=== PATIENT | female | born 1990 | race African-American/Black ===

== ENCOUNTER 2016-03-21 15:21 | Emergency (ER) | payer SELFPAY ==
[~2016-03-21] VITALS: Ht 162.6 cm; Wt 72.1 kg
[~2016-03-21 15:21] MED LIST: BACTRIM-DS1 EA ORAL; CLARITIN-D 241 EACH PO; DOXYCYCLINE MO100 MG ORAL; IBUPROFEN600 M1 PO; IBUPROFEN600 MG ORAL; KEFLEX500 MG ORAL; MUCINEX DM ER1 EACH PO; NEXAFED30 MG ORAL; NITROFURANTOIN100 M2 ORAL; PRENATAL FORMU1 EAC2 ORAL; SYNTHROID75 MCG ORAL; VICODIN 5-5001 EACH ORAL; ZITHROMAX250 MG ORAL
[2016-03-21 15:57] VITALS: BP 123/81
[2016-03-21] MEDS ORDERED: METROGEL-VAGINA70 G1 VAGIN (16:17)
[2016-03-21 16:40] VITALS: BP 123/81
--- NOTE | 2016-03-22 15:08 | Emergency Room Report ---
History of Present Illness General Chief Complaint: General Complaint Source: Patient Present Illness HPI 25-year-old female presents ED for evaluation. Patient states that she was prescribed metronidazole for BV A few days ago. States that when she takes the medication she feels something stuck in her chest and she cannot breathe. Patient went back to the same emergency room and was told that there is no alternative medication. Patient did not take the medication today. Denies any chest pain or chest tightness. Denies any shortness of breath. Denies any known food or drug allergies. No other aggravating or relieving factors. Denies any other associated symptoms Allergies: Coded Allergies: AMOXICILLIN (Verified Allergy, 10/23/12) Patient History Past Medical History: DM, HTN Past Surgical History: none Pertinent Family History: none Social History: Denies: alcohol use, drug use, smoking Last Menstrual Period: 03/16/16 Now: No Immunizations: UTD Reviewed Nursing Documentation: PMH: Agreed, PSxH: Agreed Nursing Documentation-PMH Past Medical History: No History, Except For Hx Hypertension: Yes Hx Diabetes: Yes - pre-diabetic Review of Systems All Other Systems: negative except mentioned in HPI Physical Exam Vital Signs Date Time Temp Pulse Resp B/P Pulse Ox O2 Delivery O2 Flow Rate FiO2 03/21/16 15:38 98.2 75 14 123/81 99 Room Air Sp02 EP Interpretation: reviewed, normal General Appearance: no apparent distress, alert, GCS 15, non-toxic Head: normocephalic, atraumatic Eyes: bilateral eye PERRL, bilateral eye normal inspection ENT: hearing grossly normal, normal pharynx, no angioedema, normal voice Neck: full range of motion, supple/symm/no masses Respiratory: chest non-tender, lungs clear, normal breath sounds, speaking full sentences Cardiovascular #1: regular rate, rhythm, no edema Cardiovascular #2: 2+ carotid (R), 2+ carotid (L), 2+ radial (R), 2+ radial (L) , 2+ dorsalis pedis (R), 2+ dorsalis pedis (L) Gastrointestinal: normal bowel sounds, non tender, soft, non-distended, no guarding, no rebound Rectal: deferred Genitourinary: normal inspection, no CVA tenderness Musculoskeletal: back normal, gait/station normal, normal range of motion, non- tender Neurologic: alert, oriented x3, responsive, motor strength/tone normal, sensory intact, speech normal Psychiatric: judgement/insight normal, memory normal, mood/affect normal, no suicidal/homicidal ideation Reflexes: 3+ bicep (R), 3+ bicep (L), 3+ tricep (R), 3+ tricep (L), 3+ knee (R) , 3+ knee (L) Skin: normal color, no rash, warm/dry, well hydrated Lymphatic: no adenopathy Medical Decision Making Diagnostic Impression: Primary Impression: Adverse reaction to drug Qualified Codes: T88.7XXA - Unspecified adverse effect of drug or medicament, initial encounter Additional Impression: BV (bacterial vaginosis) ER Course 25-year-old female presents ED with complaints of shortness of breath and chest tightness after taking metronidazole Differential-reactive airway disease, allergic reaction, adverse reaction to medication She placed on stretcher. After initial history physical exam reveals a young female in no acute distress. Lungs are clear. Heart exam unremarkable. No stridor and neck exam. Patient appears well. Stable vitals. Afebrile We will switch patient from metronidazole to MetroGel Diagnosis- adverse reaction to drug, BV Stable and discharged to home with prescription for MetroGel. Discontinue metronidazole. Followup with PMD. Return to ED if symptoms recur or worsen Last Vital Signs Date Time Temp Pulse Resp B/P Pulse Ox O2 Delivery O2 Flow Rate FiO2 03/21/16 16:40 98.2 75 14 123/81 99 Room Air Status: improved Disposition: HOME, SELF-CARE Condition: Stable Scripts Metronidazole* (METROGEL-VAGINAL*) 70 Gm Gel.w.appl 1 APPL VAGIN EVERY 12 HOURS for 7 Days, #70 GM Prov: DEONNA OVALLE M.D. 03/21/16 Referrals: NOT CHOSEN MICHAEL/,REFERRING (PCP) Patient Instructions: Bacterial Vaginosis, [id number] DEONNA OVALLE M.D. Mar 22, 2016 15:08
== END 2016-03-21 16:40 | disposition home or self-care (01) ==
LOC: EMR 16:09
DX: T37.8X5A Adverse effect of other specified systemic anti-infectives and antiparasitics, initial encounter (principal); Y92.009 Unspecified place in unspecified non-institutional (private) residence as the place of occurrence of the external cause; R06.02 Shortness of breath; N76.0 Acute vaginitis; B96.89 Other specified bacterial agents as the cause of diseases classified elsewhere; I10 Essential (primary) hypertension; E11.9 Type 2 diabetes mellitus without complications; Z88.0 Allergy status to penicillin
CPT/HCPCS: 99283

== ENCOUNTER 2016-07-19 16:31 | Emergency (ER) | payer SELFPAY ==
[~2016-07-19] VITALS: Ht 162.6 cm; Wt 71.2 kg
[~2016-07-19 16:31] MED LIST changes: +METROGEL-VAGINA70 G1 VAGIN
[2016-07-19 17:02] VITALS: BP 128/87
[2016-07-19 17:41] LABS: APPEARANCE,URINE CLEAR; KETONES,URINE NEGATIVE (NEGATIVE); LEUKOCYTE ESTERASE ,URINE 1+ (NEGATIVE); NITRITE,URINE NEGATIVE (NEGATIVE); PH,URINE 7 (4.5-8.0); PROTEIN,URINE NEGATIVE (NEGATIVE); UROBILINOGEN,URINE NORMAL MG/DL (0.0-1.0)
[2016-07-19 17:45] LABS: BASOPHILS % (AUTO) 1.1 % (0.0-2.0); EOSINOPHILS % (AUTO) 1.5 % (0.0-3.0); LYMPHOCYTES % (AUTO) 49.6 % (20.0-45.0); MEAN CORPUSCULAR HEMOGLOBIN 30.6 PG (27.0-31.0); MEAN CORPUSCULAR HGB CONC 35.1 G/DL (32.0-36.0); MEAN CORPUSCULAR VOLUME 87 FL (80-99); MEAN PLATELET VOLUME 7.2 FL (6.5-10.1); MONOCYTES % (AUTO) 7.1 % (1.0-10.0); NEUTROPHILS % (AUTO) 40.7 % (45.0-75.0); PLATELET COUNT 231 K/UL (150-450); RED BLOOD COUNT 4.09 M/UL (4.20-5.40); RED CELL DISTRIBUTION WIDTH 11.7 % (11.6-14.8); WHITE BLOOD COUNT 6.3 K/UL (4.8-10.8)
[2016-07-19 17:55] LABS: TROPONIN I < 0.30 ng/mL (<=0.30)
[2016-07-19 17:57] LABS: ALANINE AMINOTRANSFERASE 16 U/L (3-33); ALBUMIN/GLOBULIN RATIO 1.5 (1.0-2.7); ANION GAP 14 (5-15); ASPARTATE AMINO TRANSFERASE 19 U/L (5-40); CALCIUM 9.1 mg/dL (8.6-10.2); CARBON DIOXIDE 26 mEQ/L (20-30); CHLORIDE 98 mEQ/L (98-107); CREATININE 0.8 mg/dL (0.5-0.9); GLOMERULAR FILTRATION RATE > 60 mL/min (>60); HEMOLYSIS 6; POTASSIUM 4.3 mEQ/L (3.4-4.9); SODIUM 138 mEQ/L (135-145); TOTAL PROTEIN 7.3 g/dL (6.6-8.7)
[2016-07-19 18:02] LABS: RBC,URINE 0-2 /HPF (0 - 2); WBC,URINE 0-2 /HPF (0 - 2)
[2016-07-19 18:03] LABS: BACTERIA,URINE FEW /HPF; SQUAMOUS EPITHELIAL CELL,UR FEW /LPF (NONE/OCC)
[2016-07-19 18:07] LABS: CKMB 1.6 ng/mL (< 3.8)
[2016-07-19 18:30] VITALS: BP 121/78
[2016-07-19] MEDS ORDERED: IBUPROFEN600 MG ORAL (18:51)
[2016-07-19 19:02] VITALS: BP 124/76
--- NOTE | 2016-07-19 20:32 | Emergency Room Report ---
History of Present Illness General Chief Complaint: General Complaint Source: Patient, Medical Record Present Illness HPI 26-year-old female presents to ED complaining of chest pain for 3 days. Pain is midsternal, 8/10, sharp, radiating to the right shoulder. Denies shortness of breath. Denies trauma. Denies smoking or drug use. No other aggravating or relieving factors. Denies any other associated symptoms Allergies: Coded Allergies: AMOXICILLIN (Verified Allergy, 10/23/12) Patient History Past Medical History: DM, HTN Past Surgical History: none Pertinent Family History: none Social History: Denies: alcohol use, drug use, smoking Last Menstrual Period: 07/14/16 Now: No : 6 Para: 1 Immunizations: UTD Reviewed Nursing Documentation: PMH: Agreed, PSxH: Agreed Nursing Documentation-PMH Past Medical History: No History, Except For Hx Hypertension: Yes Hx Diabetes: Yes - pre-diabetic Review of Systems All Other Systems: negative except mentioned in HPI Physical Exam Vital Signs Date Time Temp Pulse Resp B/P Pulse Ox O2 Delivery O2 Flow Rate FiO2 07/19/16 16:36 98.2 69 16 131/88 99 Room Air Sp02 EP Interpretation: reviewed, normal General Appearance: no apparent distress, alert, GCS 15, non-toxic Head: normocephalic, atraumatic Eyes: bilateral eye PERRL, bilateral eye normal inspection ENT: hearing grossly normal, normal pharynx, no angioedema, normal voice Neck: full range of motion, supple/symm/no masses Respiratory: lungs clear, normal breath sounds, speaking full sentences, other - reproducible midsternal chest wall pain Cardiovascular #1: regular rate, rhythm, no edema Cardiovascular #2: 2+ carotid (R), 2+ carotid (L), 2+ radial (R), 2+ radial (L) , 2+ dorsalis pedis (R), 2+ dorsalis pedis (L) Gastrointestinal: normal bowel sounds, non tender, soft, non-distended, no guarding, no rebound Rectal: deferred Genitourinary: normal inspection, no CVA tenderness Musculoskeletal: back normal, gait/station normal, normal range of motion, non- tender, calf tenderness Neurologic: alert, oriented x3, responsive, motor strength/tone normal, sensory intact, speech normal Psychiatric: judgement/insight normal, memory normal, mood/affect normal, no suicidal/homicidal ideation Reflexes: 3+ bicep (R), 3+ bicep (L), 3+ tricep (R), 3+ tricep (L), 3+ knee (R) , 3+ knee (L) Skin: normal color, no rash, warm/dry, well hydrated Lymphatic: no adenopathy Medical Decision Making Diagnostic Impression: Primary Impression: Chest wall pain ER Course Hospital Course 26-year-old female presents ED complaining of reproducible chest wall pain Differential diagnoses include: Rib fracture, KS/unstable angina, contusion, muscle strain Clinical course Patient placed on stretcher. After initial history and physical I ordered labs , EKG, chest x-ray. labs reviewed- all electrolytes normal, troponins negative, no leukocytosis, hemoglobin/hematocrit stable EKG - NSR, no acute changes Chest x-ray-no cardiomegaly, no rib fracture, no pneumothorax, no acute process clinical findings consistent with muscle strain/costochondritis. Reassurance given. I. I feel this is a highly complex case requiring extensive working including EKG/Rhythm strip, Xray/CT/US, Blood/urine lab work, repeat exams while in ED, and administration of strong opiates/narcotics for pain control, admission to hospital or close patient follow up. Diagnosis - chest wall pain Stable and discharged to home with prescription for Motrin. Instructed to followup with PMD. Return to ED if symptoms recur or worsen Labs Test 07/19/16 17:12 White Blood Count 6.3 K/UL (4.8-10.8) Red Blood Count 4.09 M/UL (4.20-5.40) Hemoglobin 12.5 G/DL (12.0-16.0) Hematocrit 35.7 % (37.0-47.0) Mean Corpuscular Volume 87 FL (80-99) Mean Corpuscular Hemoglobin 30.6 PG (27.0-31.0) Mean Corpuscular Hemoglobin Concent 35.1 G/DL (32.0-36.0) Red Cell Distribution Width 11.7 % (11.6-14.8) Platelet Count 231 K/UL (150-450) Mean Platelet Volume 7.2 FL (6.5-10.1) Neutrophils (%) (Auto) 40.7 % (45.0-75.0) Lymphocytes (%) (Auto) 49.6 % (20.0-45.0) Monocytes (%) (Auto) 7.1 % (1.0-10.0) Eosinophils (%) (Auto) 1.5 % (0.0-3.0) Basophils (%) (Auto) 1.1 % (0.0-2.0) Urine Color Pale yellow Urine Appearance Clear Urine pH 7 (4.5-8.0) Urine Specific [place] 1.010 (1.005-1.035) Urine Protein Negative (NEGATIVE) Urine Glucose (UA) Negative (NEGATIVE) Urine Ketones Negative (NEGATIVE) Urine Occult Blood Negative (NEGATIVE) Urine Nitrite Negative (NEGATIVE) Urine Bilirubin Negative (NEGATIVE) Urine Urobilinogen Normal MG/DL (0.0-1.0) Urine Leukocyte Esterase 1+ (NEGATIVE) Urine RBC 0-2 /HPF (0 - 2) Urine WBC 0-2 /HPF (0 - 2) Urine Squamous Epithelial Cells Few /LPF (NONE/OCC) Urine Bacteria Few /HPF (NONE) Urine HCG, Qualitative Negative Sodium Level 138 mEQ/L (135-145) Potassium Level 4.3 mEQ/L (3.4-4.9) Chloride Level 98 mEQ/L (98-107) Carbon Dioxide Level 26 mEQ/L (20-30) Anion Gap 14 (5-15) Blood Urea Nitrogen 9 mg/dL (7-23) Creatinine 0.8 mg/dL (0.5-0.9) Estimat Glomerular Filtration Rate > 60 mL/min (>60) Glucose Level 82 mg/dL (74-106) Calcium Level 9.1 mg/dL (8.6-10.2) Total Bilirubin 0.5 mg/dL (0.0-1.2) Aspartate Amino Transf (AST/SGOT) 19 U/L (5-40) Alanine Aminotransferase (ALT/SGPT) 16 U/L (3-33) Alkaline Phosphatase 56 U/L (35-104) Total Creatine Kinase 164 U/L (26-140) Creatine Kinase MB 1.6 ng/mL (< 3.8) Creatine Kinase MB Relative Index 0.9 Troponin I < 0.30 ng/mL (<=0.30) Total Protein 7.3 g/dL (6.6-8.7) Albumin 4.4 g/dL (3.5-5.2) Globulin 2.9 g/dL Albumin/Globulin Ratio 1.5 (1.0-2.7) Urine Opiates Screen Negative (NEGATIVE) Urine Barbiturates Screen Negative (NEGATIVE) Phencyclidine (PCP) Screen Negative (NEGATIVE) Urine Amphetamines Screen Negative (NEGATIVE) Urine Benzodiazepines Screen Negative (NEGATIVE) Urine Cocaine Screen Negative (NEGATIVE) Urine Marijuana (THC) Screen Negative (NEGATIVE) EKG Diagnostic Results Rate: normal Rhythm: NSR ST Segments: no acute changes ASA given to the pt in ED: No Rhythm Strip Diag. Results EP Interpretation: yes Rhythm: NSR, no PVC's, no ectopy Chest X-Ray Diagnostic Results EP Interpretation: Yes Findings: no consolidation, no effusion, no pneumothorax, no acute cardiopulmonary disease Number of Views: 1 Last Vital Signs Date Time Temp Pulse Resp B/P Pulse Ox O2 Delivery O2 Flow Rate FiO2 07/19/16 19:02 64 13 124/76 97 Room Air 07/19/16 18:30 97.9 Status: improved Disposition: HOME, SELF-CARE Condition: Stable Scripts Ibuprofen* (MOTRIN*) 600 Mg Tablet 600 MG ORAL Q8H Y for For Pain, #30 TAB 0 Refills Prov: DEONNA OVALLE M.D. 07/19/16 Referrals: NON PHYSICIAN (PCP) Patient Instructions: Chest Wall Pain, [id number] DEONNA OVALLE M.D. Jul 19, 2016 20:32
--- NOTE | 2016-07-20 12:04 | Diagnostic Imaging Report ---
Indication: Chest Pain Comparison: 01/20/15 A single view chest radiograph was obtained. Findings: Cardiomediastinal appearance is within normal limits for age. Pulmonary vascularity is appropriate. The diaphragmatic contour is smooth and costophrenic angles are sharp. No pleural effusions are identified. The bones are unremarkable. Impression: No acute findings
--- NOTE | 2016-07-22 01:10 | Cardiology Report ---
APPROVED REPORT EKG Measurement Heart [id number] Normal sinus rhythm Normal ECG
== END 2016-07-19 19:04 | disposition home or self-care (01) ==
LOC: EMR 17:27
DX: R07.89 Other chest pain (principal); I10 Essential (primary) hypertension; Z88.0 Allergy status to penicillin
CPT/HCPCS: 36415; 71010; 80053; 80300; 81003; 81025; 82550; 82553; 82962; 84484; 85025; 93005; 99283

== ENCOUNTER 2017-04-11 14:04 | Emergency (ER) | payer MEDICAID ==
[~2017-04-11] VITALS: Ht 162.6 cm; Wt 68.0 kg
--- NOTE | 2017-04-11 15:24 | Emergency Room Report ---
History of Present Illness General Chief Complaint: General Complaint Source: Patient (Garrick Neal) Present Illness HPI 26yo female patient presents to ER complaining of dysuria, sore throat, and general fatigue x1 month. Patient reports dysuria and frequency during this time, Patient also complains of clear/white vaginal discharge. Patient reports hx of unprotected sex; denies bloody vaginal discharge. Patient reports foul smelling vaginal odor. Patient denies itching. Patient reports LMP one month ago; states was normal for her. Patient also complains of sore throat. Patient denies cough and fever. Patient denies chest pain, SOB, abdominal pain. Patient reports hx of hypothyroidism; states she was previously being treated but was taken off medication 2-3 years ago; states last appointment with physician for thyroid was 2-3 years ago. (Garrick Neal) Allergies: Coded Allergies: AMOXICILLIN (Verified Allergy, 10/23/12) Patient History Past Medical History: see triage record Last Menstrual Period: 3 weeks ago Reviewed Nursing Documentation: PMH: Agreed, PSxH: Agreed (Garrick Neal) Nursing Documentation-PMH Past Medical History: No History, Except For Hx Hypertension: Yes Hx Diabetes: Yes - pre-diabetic (Garrick Neal) Review of Systems All Other Systems: negative except mentioned in HPI (Garrick Neal) Physical Exam Vital Signs Date Time Temp Pulse Resp B/P (MAP) Pulse Ox O2 Delivery O2 Flow Rate FiO2 04/11/17 14:59 98.0 72 16 132/86 97 Room Air 98.1 Sp02 EP Interpretation: reviewed, normal General Appearance: well appearing, no apparent distress, alert, GCS 15, non- toxic Head: normocephalic, atraumatic Eyes: bilateral eye normal inspection, bilateral eye PERRL, bilateral eye EOMI ENT: hearing grossly normal, normal pharynx, normal voice, TMs + canals normal , uvula midline, moist mucus membranes, nasal congestion, pharyngeal erythema, other - no exudates, no open sores, no bleeding, no tonsillar swelling Neck: normal inspection, full range of motion, thyroid normal, no bony tend Respiratory: normal inspection, lungs clear, normal breath sounds, no accessory muscle use, no wheezing, speaking full sentences Cardiovascular #1: regular rate, rhythm, no edema Gastrointestinal: normal bowel sounds, non tender, soft, no mass, non-distended , no guarding, no rebound Genitourinary: no CVA tenderness Musculoskeletal: back normal, digits/nails normal, gait/station normal, normal range of motion, no calf tenderness Neurologic: alert, oriented x3, responsive, or manager III-XII nml as tested, motor strength/tone normal, sensory intact, normal gait Psychiatric: mood/affect normal Skin: no rash Lymphatic: no adenopathy (Garrick Neal) Medical Decision Making PA Attestation Dr. Hernandez is my supervising Physician whom patient management has been discussed with. (Garrick Neal) Diagnostic Impression: Primary Impression: Pain with urination Additional Impressions: Pharyngitis Qualified Codes: J02.9 - Acute pharyngitis, unspecified Sexually transmitted infection ER Course Pt. presents to the ED c/o dysuria and generalized fatigue. Ddx considered but are not limited to gonorrhea, chlamydia, cystitis, pyelonephritis, pharyngitis, hypothyroidism, . Vital signs: are WNL, pt. is afebrile Order labs, UA, and Zofran for nausea. ER COURSE: CBC unremarkable Urine negative TSH within normal range UA negative for nitrites, positive for WBC, bacteria, leukocyte esterase. Results discussed with patient. Informed patient that she must followup with her primary care for further followup labs and monitoring of her thyroid. Discussed findings with patient. Informed patient will provide treatment for possible STI and bacterial vaginosis. Instructed patient to take Tylenol for sore throat. Patient reports understanding and agreement to treatment plan. ED INTERVENTIONS: -Viscous lidocaine -Rocephin DISCHARGE: Rx provided for Tylenol for pain symptoms in throat. Rx provided for Azithromycin Rx provided for metronidazole gel for bacterial vaginosis. Rx provided for Phenazopyridine if urine symptoms do not improve. Advised to use safe sex practices including but not limited to use of condoms. Instructed patient to follow up with STI clinic and/or PCP for future STI treatment and prevention. Instructed patient to inform partner of need for treatment to prevent future infection. Care plan and follow up instructions have been discussed with the patient prior to discharge At this time pt. is stable for d/c to home. Patient is resting comfortably, in no acute distress, nontoxic appearing. Will provide printed patient care instructions, and any necessary prescriptions. Patient instructed to follow with primary care provider for further treatment and referral as needed. Care plan and follow up instructions have been discussed with the patient prior to discharge. Patient reports understanding and agreement to treatment plan. Patient questions asked and answered. ER precautions given, patient instructed to return to ER immediately for any new or worsening of symptoms. Labs Test 04/11/17 15:43 04/11/17 16:00 White Blood Count 6.8 K/UL (4.8-10.8) Red Blood Count 4.66 M/UL (4.20-5.40) Hemoglobin 13.4 G/DL (12.0-16.0) Hematocrit 40.6 % (37.0-47.0) Mean Corpuscular Volume 87 FL (80-99) Mean Corpuscular Hemoglobin 28.8 PG (27.0-31.0) Mean Corpuscular Hemoglobin Concent 33.1 G/DL (32.0-36.0) Red Cell Distribution Width 12.6 % (11.6-14.8) Platelet Count 252 K/UL (150-450) Mean Platelet Volume 8.3 FL (6.5-10.1) Neutrophils (%) (Auto) 49.4 % (45.0-75.0) Lymphocytes (%) (Auto) 40.4 % (20.0-45.0) Monocytes (%) (Auto) 7.5 % (1.0-10.0) Eosinophils (%) (Auto) 1.3 % (0.0-3.0) Basophils (%) (Auto) 1.4 % (0.0-2.0) Sodium Level 138 MMOL/L (136-145) Potassium Level 4.2 MMOL/L (3.5-5.1) Chloride Level 102 MMOL/L (98-107) Carbon Dioxide Level 29 MMOL/L (21-32) Anion Gap 7 mmol/L (5-15) Blood Urea Nitrogen 9 mg/dL (7-18) Creatinine 0.7 MG/DL (0.55-1.30) Estimat Glomerular Filtration Rate > 60 mL/min (>60) Glucose Level 91 MG/DL (74-106) Calcium Level 9.1 MG/DL (8.5-10.1) Total Bilirubin 0.5 MG/DL (0.2-1.0) Aspartate Amino Transf (AST/SGOT) 25 U/L (15-37) Alanine Aminotransferase (ALT/SGPT) 24 U/L (12-78) Alkaline Phosphatase 64 U/L (46-116) Total Protein 8.0 G/DL (6.4-8.2) Albumin 4.0 G/DL (3.4-5.0) Globulin 4.0 g/dL Albumin/Globulin Ratio 1.0 (1.0-2.7) Lipase 123 U/L (73-393) Thyroid Stimulating Hormone (TSH) 2.137 uiU/mL (0.358-3.740) Human Chorionic Gonadotropin, Quant 1 mIU/mL (1-6) Urine Color Pale yellow Urine Appearance Clear Urine pH 6.5 (4.5-8.0) Urine Specific [place] 1.010 (1.005-1.035) Urine Protein Negative (NEGATIVE) Urine Glucose (UA) Negative (NEGATIVE) Urine Ketones Negative (NEGATIVE) Urine Occult Blood Negative (NEGATIVE) Urine Nitrite Negative (NEGATIVE) Urine Bilirubin Negative (NEGATIVE) Urine Urobilinogen Normal MG/DL (0.0-1.0) Urine Leukocyte Esterase 1+ (NEGATIVE) Urine RBC 0-2 /HPF (0 - 2) Urine WBC 2-4 /HPF (0 - 2) Urine Squamous Epithelial Cells Few /LPF (NONE/OCC) Urine Bacteria Occasional /HPF (NONE) Urine HCG, Qualitative Negative (Garrick Neal P.A.) Last Vital Signs Date Time Temp Pulse Resp B/P (MAP) Pulse Ox O2 Delivery O2 Flow Rate FiO2 04/11/17 14:59 98.0 72 16 132/86 97 Room Air 98.1 (Garrick Neal P.A.) Last Vital Signs Date Time Temp Pulse Resp B/P (MAP) Pulse Ox O2 Delivery O2 Flow Rate FiO2 04/11/17 19:48 98.1 76 16 132/86 97 Room Air 98.1 (Shabbir Hernandez M.D.) Disposition: HOME, SELF-CARE Condition: Stable Scripts Metronidazole* (METROGEL-VAGINAL*) 70 Gm Gel.w.appl 1 APPL VAGIN EVERY 12 HOURS, #70 GM Prov: Garrick Neal P.AIsrael 04/11/17 Acetaminophen* (TYLENOL EXTRA STRENGTH*) 500 Mg Tablet 500 MG ORAL Q8H Y for Prn Headache/Temp > 101, #30 TAB 0 Refills Prov: Garrick Neal 04/11/17 Azithromycin* (ZITHROMAX*) 250 Mg Tablet 250 MG ORAL DAILY, #6 TAB 0 Refills Take two tables once daily for 1 day, then one tablet once daily for 4 days. Prov: Garrick Neal 04/11/17 Phenazopyridine Hcl* (PYRIDIUM*) 200 Mg Tablet 200 MG ORAL THREE TIMES A DAY, #14 TAB 0 Refills Prov: Garrick Neal 04/11/17 Additional Instructions: Followup with primary care provider in 3 -5 days. Take medications as directed. Patient questions asked and answered. ER precautions given, patient instructed to return to ER immediately for any new or worsening of symptoms. Garrick Neal Apr 11, 2017 15:24 Shabbir Hernandez M.D. Apr 12, 2017 23:16
[2017-04-11 15:55] LABS: BASOPHILS % (AUTO) 1.4 % (0.0-2.0); EOSINOPHILS % (AUTO) 1.3 % (0.0-3.0); HEMATOCRIT 40.6 % (37.0-47.0); HEMOGLOBIN 13.4 G/DL (12.0-16.0); LYMPHOCYTES % (AUTO) 40.4 % (20.0-45.0); MEAN CORPUSCULAR VOLUME 87 FL (80-99); MONOCYTES % (AUTO) 7.5 % (1.0-10.0); NEUTROPHILS % (AUTO) 49.4 % (45.0-75.0); PLATELET COUNT 252 K/UL (150-450); RED BLOOD COUNT 4.66 M/UL (4.20-5.40); RED CELL DISTRIBUTION WIDTH 12.6 % (11.6-14.8); WHITE BLOOD COUNT 6.8 K/UL (4.8-10.8)
[2017-04-11 16:09] LABS: ANION GAP 7 mmol/L (5-15); BLOOD UREA NITROGEN 9 mg/dL (7-18); CALCIUM 9.1 MG/DL (8.5-10.1); CARBON DIOXIDE 29 MMOL/L (21-32); CHLORIDE 102 MMOL/L (98-107); CREATININE 0.7 MG/DL (0.55-1.30); POTASSIUM 4.2 MMOL/L (3.5-5.1); SODIUM 138 MMOL/L (136-145)
[2017-04-11 16:21] LABS: ALANINE AMINOTRANSFERASE 24 U/L (12-78); ALKALINE PHOSPHATASE 64 U/L (46-116); ASPARTATE AMINO TRANSFERASE 25 U/L (15-37); BILIRUBIN,TOTAL 0.5 MG/DL (0.2-1.0)
[2017-04-11 16:36] LABS: APPEARANCE,URINE CLEAR; BILIRUBIN, URINE NEGATIVE (NEGATIVE); COLOR,URINE PALE YELLOW; GLUCOSE, URINE (UA) NEGATIVE (NEGATIVE); KETONES,URINE NEGATIVE (NEGATIVE); LEUKOCYTE ESTERASE ,URINE 1+ (NEGATIVE); NITRITE,URINE NEGATIVE (NEGATIVE); PH,URINE 6.5 (4.5-8.0); PROTEIN,URINE NEGATIVE (NEGATIVE); UROBILINOGEN,URINE NORMAL MG/DL (0.0-1.0)
[2017-04-11] MEDS ORDERED: ZITHROMAX250 MG ORAL (17:22)
[2017-04-11] MEDS ORDERED: METROGEL-VAGINA70 G1 VAGIN (17:22)
[2017-04-11] MEDS ORDERED: TYLENOL EXTRA500 MG ORAL (17:22)
[2017-04-11] MEDS ORDERED: PHENAZOPYRIDIN200 MG ORAL (17:22)
[2017-04-11] MEDS ORDERED: Lidocaine 1% MPF 10mg/ml 5ml INJ ONE (17:30)
[2017-04-11] MEDS ORDERED: Lidocaine 2% Visc 15ml soln ORAL ONE (17:30)
[2017-04-11 17:36] VITALS: BP 132/86
[2017-04-11 19:48] VITALS: BP 132/86
== END 2017-04-11 15:40 | disposition home or self-care (01) ==
LOC: EMR 15:05
DX: R30.0 Dysuria (principal); J02.9 Acute pharyngitis, unspecified; R53.83 Other fatigue; I10 Essential (primary) hypertension
CPT/HCPCS: 36415; 80053; 81003; 81025; 83690; 84443; 84702; 85025; 96372; 99284; J0696

== ENCOUNTER 2017-10-15 00:57 | Emergency (ER) | payer MEDICAID ==
[~2017-10-15] VITALS: Ht 162.6 cm; Wt 78.0 kg
[~2017-10-15 00:57] MED LIST changes: +PHENAZOPYRIDIN200 MG ORAL; +TYLENOL EXTRA500 MG ORAL
[2017-10-15 01:25] VITALS: BP 133/86
[2017-10-15 01:33] LABS: BILIRUBIN, URINE NEGATIVE (NEGATIVE); GLUCOSE, URINE (UA) NEGATIVE (NEGATIVE); KETONES,URINE 1+ (NEGATIVE); LEUKOCYTE ESTERASE ,URINE 2+ (NEGATIVE); NITRITE,URINE NEGATIVE (NEGATIVE); PH,URINE 6 (4.5-8.0); PROTEIN,URINE 1+ (NEGATIVE); UROBILINOGEN,URINE NORMAL MG/DL (0.0-1.0)
--- NOTE | 2017-10-15 01:42 | Emergency Room Report ---
History of Present Illness General Chief Complaint: Abdominal Pain Source: Patient Present Illness HPI Patient presents with complaints of vaginal itching Reports that 2 weeks ago she was on antibiotics She is not sure what they were for However after discussing further she reports that she was taking now for possible STD Patient stopped taking the medicine 2 weeks ago Presents with continued itching Has not been able to see her doctor because she was working at nights Also is having some lower back discomfort and cramping as well Denies any chest pain denies any fevers patient reports that she feels that she had a yeast infection as well after this Allergies: Coded Allergies: AMOXICILLIN (Verified Allergy, 10/23/12) Patient History Past Medical History: see triage record Pertinent Family History: none Last Menstrual Period: 3 weeks ago Reviewed Nursing Documentation: PMH: Agreed; PSxH: Agreed Nursing Documentation-PMH Hx Hypertension: Yes Hx Diabetes: Yes - pre-diabetic Review of Systems All Other Systems: negative except mentioned in HPI Physical Exam Vital Signs Date Time Temp Pulse Resp B/P (MAP) Pulse Ox O2 Delivery O2 Flow Rate FiO2 10/15/17 01:09 96.0 83 16 133/86 96 Room Air 96.1 Sp02 EP Interpretation: reviewed, normal General Appearance: well appearing, no apparent distress Head: normocephalic, atraumatic Eyes: bilateral eye PERRL, bilateral eye EOMI ENT: hearing grossly normal, normal pharynx Neck: full range of motion, supple Respiratory: lungs clear Cardiovascular #1: regular rate, rhythm Gastrointestinal: non tender, soft Genitourinary: no CVA tenderness Musculoskeletal: normal inspection Neurologic: alert, oriented x3, responsive Skin: normal color, no rash Lymphatic: no adenopathy Medical Decision Making Diagnostic Impression: Primary Impression: UTI (urinary tract infection) Additional Impressions: Vaginitis ER Course With the patient's history and examination, multiple differentials considered, including but not limited to , ectopic , ovarian torsion, gastritis, cholecystitis, pancreatitis, appendicitis Patient's urine test was positive Quantitative test reveals a number of 90 This number is too low to determine at this time for other viability Patient requires close follow-up and reevaluation Consideration for ectopic is still there however low given the patient 's lack of any discomfort in the abdominal area, urine sample does show infection Patient was placed on antibiotics clinical complaints of vaginitis are also treated and patient stable for close outpatient follow-up Labs Test 8/28/18 01:20 10/15/17 02:03 Urine Color Yellow Urine Appearance Slightly cloudy Urine pH 6 (4.5-8.0) Urine Specific [place] 1.020 (1.005-1.035) Urine Protein 1+ (NEGATIVE) Urine Glucose (UA) Negative (NEGATIVE) Urine Ketones 1+ (NEGATIVE) Urine Blood Negative (NEGATIVE) Urine Nitrite Negative (NEGATIVE) Urine Bilirubin Negative (NEGATIVE) Urine Urobilinogen Normal MG/DL (0.0-1.0) Urine Leukocyte Esterase 2+ (NEGATIVE) Urine RBC 2-4 /HPF (0 - 2) Urine WBC 10-15 /HPF (0 - 2) Urine Squamous Epithelial Cells Moderate /LPF (NONE/OCC) Urine Bacteria Moderate /HPF (NONE) Urine Yeast Few /HPF (NONE) Urine HCG, Qualitative Positive (NEGATIVE) Human Chorionic Gonadotropin, Quant 90 mIU/mL (1-6) Last Vital Signs Date Time Temp Pulse Resp B/P (MAP) Pulse Ox O2 Delivery O2 Flow Rate FiO2 10/15/17 01:25 96.1 16 133/86 96 Room Air 96.1 10/15/17 01:09 83 Status: improved Disposition: HOME, SELF-CARE Condition: Improved Scripts Nitrofurantoin Monohyd/M-Cryst* (MACROBID 100 MG*) 100 Mg Capsule 100 MG ORAL EVERY 12 HOURS for 5 Days, CAP Prov: Shahzad Carlos DO 10/15/17 Metronidazole* (METROGEL-VAGINAL*) 70 Gm Gel.w.appl 1 APPL VAGIN BEDTIME for 7 Days, GM Prov: Shahzad Carlos DO 10/15/17 Additional Instructions: Patient is provided with the discharge instructions notified to follow up with primary doctor in the next 2-3 days otherwise return to the er with any worsening symptoms. Please note that this report is being documented using [employer] technology. This can lead to erroneous entry secondary to incorrect interpretation by the dictating instrument. Shahzad Carlos DO Oct 15, 2017 01:42
[2017-10-15] MEDS ORDERED: Fluconazole 100mg tab ORAL ONE (01:45)
[2017-10-15 01:50] LABS: APPEARANCE,URINE SLIGHTLY CLOUDY; COLOR,URINE YELLOW
[2017-10-15] MEDS ORDERED: NITROFURANTOIN100 M2 ORAL (03:42)
[2017-10-15] MEDS ORDERED: METROGEL-VAGINA70 G1 VAGIN (03:42)
[2017-10-15 04:00] VITALS: BP 122/99
== END 2017-10-15 04:10 | disposition home or self-care (01) ==
LOC: EMR 01:30
DX: N39.0 Urinary tract infection, site not specified (principal); N76.0 Acute vaginitis; R73.03 Prediabetes; Z32.01 Encounter for pregnancy test, result positive; Z88.1 Allergy status to other antibiotic agents
CPT/HCPCS: 36415; 81003; 81025; 84702; 87086; 99283

== ENCOUNTER 2017-10-31 09:35 | Emergency (ER) | payer MEDICAID ==
[~2017-10-31] VITALS: Ht 165.1 cm; Wt 74.4 kg
[2017-10-31] MEDS ORDERED: NKM (09:52)
[2017-10-31 09:55] VITALS: BP 138/81
[2017-10-31] MEDS ORDERED: Ondansetron ODT 8mg tab ORAL ONE (10:15)
[2017-10-31 10:38] LABS: APPEARANCE,URINE CLEAR; BILIRUBIN, URINE NEGATIVE (NEGATIVE); GLUCOSE, URINE (UA) NEGATIVE (NEGATIVE); KETONES,URINE 4+ (NEGATIVE); LEUKOCYTE ESTERASE ,URINE 1+ (NEGATIVE); NITRITE,URINE NEGATIVE (NEGATIVE); PH,URINE 6 (4.5-8.0); PROTEIN,URINE 2+ (NEGATIVE); UROBILINOGEN,URINE 1 MG/DL (0.0-1.0)
[2017-10-31 10:40] LABS: BASOPHILS % (AUTO) 0.7 % (0.0-2.0); EOSINOPHILS % (AUTO) 0.1 % (0.0-3.0); HEMATOCRIT 41.6 % (37.0-47.0); HEMOGLOBIN 13.5 G/DL (12.0-16.0); LYMPHOCYTES % (AUTO) 19.8 % (20.0-45.0); MEAN CORPUSCULAR VOLUME 85 FL (80-99); MONOCYTES % (AUTO) 6.7 % (1.0-10.0); NEUTROPHILS % (AUTO) 72.8 % (45.0-75.0); PLATELET COUNT 260 K/UL (150-450); RED BLOOD COUNT 4.89 M/UL (4.20-5.40); WHITE BLOOD COUNT 7.5 K/UL (4.8-10.8)
[2017-10-31 10:47] LABS: COLOR,URINE YELLOW
[2017-10-31 10:49] LABS: ANION GAP 8 mmol/L (5-15); BLOOD UREA NITROGEN 7 mg/dL (7-18); CALCIUM 9.2 MG/DL (8.5-10.1); CARBON DIOXIDE 26 MMOL/L (21-32); CHLORIDE 102 MMOL/L (98-107); CREATININE 0.7 MG/DL (0.55-1.30); POTASSIUM 3.7 MMOL/L (3.5-5.1); SODIUM 136 MMOL/L (136-145)
[2017-10-31 10:54] LABS: ALANINE AMINOTRANSFERASE 28 U/L (12-78); ALBUMIN 3.9 G/DL (3.4-5.0); ALBUMIN/GLOBULIN RATIO 0.9 (1.0-2.7); ALKALINE PHOSPHATASE 63 U/L (46-116); ASPARTATE AMINO TRANSFERASE 16 U/L (15-37); BILIRUBIN,TOTAL 0.8 MG/DL (0.2-1.0)
--- NOTE | 2017-10-31 12:03 | Diagnostic Imaging Report ---
Indication: Abdominal pain, cramping, vomiting, positive test Technique: Transabdominal and transvaginal images Comparison: 08/30/2014 Findings: Uterus measures 8.8 cm in length by 4 AP. Within the endometrium, there is a gestational sac. This contains a pole which demonstrates positive heart activity, heart rate 108 bpm. [place]-rump length is 3 mm, corresponding to estimated gestational age of 6 weeks zero days. There is also a yolk sac demonstrated. Very questionable hypoechoic focus adjacent to the gestational sac could reflect minimal subchorionic hemorrhage. A 13 mm uterine fundal fibroid is demonstrated. Multiple cervical nabothian cysts are noted. The right ovary measures 2.7 cm in length. Left ovary measures 2.8 cm length. No adnexal mass demonstrated. Trace free cul-de-sac fluid Impression: Positive for 6 week, by crown-rump length, single live intrauterine Equivocal small subchorionic hemorrhage Trace free cul-de-sac fluid, likely physiologic Possible small uterine fibroids Cervical nabothian cysts Negative for adnexal mass
[2017-10-31 12:44] VITALS: BP 135/78
--- NOTE | 2017-10-31 12:46 | Emergency Room Report ---
History of Present Illness General Chief Complaint: Nausea Source: Patient, Medical Record Present Illness HPI The patient states that she is 6 weeks . She states that the was an accident and is unwanted. [facility]. She started the first day of the medication process. She took the initial first hormone tablet and then took azithromycin last night as instructed. She states she was supposed to take 4 tablets of Cytotec today but she hasn't yet. She states that after taking the azithromycin last night she developed shaking chills and vomiting. She states she's had no further vomiting today. She is concerned that she is poisoning her body. She's had no vaginal bleeding. She has no other complaints. Allergies: Coded Allergies: AMOXICILLIN (Verified Allergy, 10/23/12) Patient History Past Medical History: other - Hypothyroid Past Surgical History: none Social History: Denies: smoking, alcohol use, drug use Now: Yes Reviewed Nursing Documentation: PMH: Agreed; PSxH: Agreed Nursing Documentation-PMH Past Medical History: No History, Except For Hx Hypertension: Yes Hx Diabetes: Yes - pre-diabetic Review of Systems All Other Systems: negative except mentioned in HPI Physical Exam Vital Signs Date Time Temp Pulse Resp B/P (MAP) Pulse Ox O2 Delivery O2 Flow Rate FiO2 10/31/17 09:40 98.2 82 18 138/81 98 Room Air 98.2 Sp02 EP Interpretation: reviewed, normal General Appearance: no apparent distress, alert, GCS 15, non-toxic Head: normocephalic, atraumatic Eyes: bilateral eye normal inspection, bilateral eye PERRL ENT: hearing grossly normal, normal pharynx, no angioedema, normal voice Neck: full range of motion, supple/symm/no masses Respiratory: chest non-tender, lungs clear, normal breath sounds, no respiratory distress, no retraction, no accessory muscle use, speaking full sentences Cardiovascular #1: regular rate, rhythm, no edema Gastrointestinal: normal bowel sounds, non tender, soft, non-distended, no guarding, no rebound Rectal: deferred Musculoskeletal: back normal, gait/station normal, normal range of motion, non- tender Neurologic: alert, oriented x3, responsive, motor strength/tone normal, sensory intact, speech normal Psychiatric: judgement/insight normal, memory normal, mood/affect normal, no suicidal/homicidal ideation Skin: normal color, no rash, warm/dry, well hydrated Medical Decision Making Diagnostic Impression: Primary Impression: Nausea and vomiting in Additional Impression: Medication side effect ER Course Patient presents with a 6 month intrauterine . She has not completed the full medical pathway. The patient continues to state that she does not want this . I educated the patient that she could continue the course in take the for Cytotec tablets that she has in her possession before she could re-present to the [facility]'s [facility] and request a surgical . The patient decided that she would return to the health clinic for surgical . She does not want to take any further medications. I did educate the patient that likely the initial tablet she took yesterday could cause serious defects and that she should report to the [facility] that she received from immediately. She indicated intention to do so and understanding. Pelvic ultrasound shows a six-week intrauterine . Laboratory studies to include a CBC, CMP and hCG are appropriate and normal. The patient overall is well-appearing and nontoxic. She had no further vomiting here in the emergency department. She was given close return precautions and follow-up instructions. Laboratory Tests Test 10/31/17 10:15 White Blood Count 7.5 K/UL (4.8-10.8) Red Blood Count 4.89 M/UL (4.20-5.40) Hemoglobin 13.5 G/DL (12.0-16.0) Hematocrit 41.6 % (37.0-47.0) Mean Corpuscular Volume 85 FL (80-99) Mean Corpuscular Hemoglobin 27.6 PG (27.0-31.0) Mean Corpuscular Hemoglobin Concent 32.5 G/DL (32.0-36.0) Red Cell Distribution Width 12.0 % (11.6-14.8) Platelet Count 260 K/UL (150-450) Mean Platelet Volume 7.4 FL (6.5-10.1) Neutrophils (%) (Auto) 72.8 % (45.0-75.0) Lymphocytes (%) (Auto) 19.8 % (20.0-45.0) L Monocytes (%) (Auto) 6.7 % (1.0-10.0) Eosinophils (%) (Auto) 0.1 % (0.0-3.0) Basophils (%) (Auto) 0.7 % (0.0-2.0) Urine Color Yellow Urine Appearance Clear Urine pH 6 (4.5-8.0) Urine Specific [place] 1.025 (1.005-1.035) Urine Protein 2+ (NEGATIVE) H Urine Glucose (UA) Negative (NEGATIVE) Urine Ketones 4+ (NEGATIVE) H Urine Blood Negative (NEGATIVE) Urine Nitrite Negative (NEGATIVE) Urine Bilirubin Negative (NEGATIVE) Urine Urobilinogen 1 MG/DL (0.0-1.0) H Urine Leukocyte Esterase 1+ (NEGATIVE) H Urine RBC 0-2 /HPF (0 - 2) Urine WBC 5-10 /HPF (0 - 2) H Urine Squamous Epithelial Cells Few /LPF (NONE/OCC) Urine Bacteria Few /HPF (NONE) Urine Mucus Many /LPF (NONE/OCC) H Sodium Level 136 MMOL/L (136-145) Potassium Level 3.7 MMOL/L (3.5-5.1) Chloride Level 102 MMOL/L (98-107) Carbon Dioxide Level 26 MMOL/L (21-32) Anion Gap 8 mmol/L (5-15) Blood Urea Nitrogen 7 mg/dL (7-18) Creatinine 0.7 MG/DL (0.55-1.30) Estimate Glomerular Filtration Rate > 60 mL/min (>60) Glucose Level 89 MG/DL (74-106) Calcium Level 9.2 MG/DL (8.5-10.1) Total Bilirubin 0.8 MG/DL (0.2-1.0) Aspartate Amino Transferase (AST) 16 U/L (15-37) Alanine Aminotransferase (ALT) 28 U/L (12-78) Alkaline Phosphatase 63 U/L (46-116) Total Protein 8.3 G/DL (6.4-8.2) H Albumin 3.9 G/DL (3.4-5.0) Globulin 4.4 g/dL Albumin/Globulin Ratio 0.9 (1.0-2.7) L Human Chorionic Gonadotropin, Quant 40440 mIU/mL (1-6) H CT/MRI/US Diagnostic Results CT/MRI/US Diagnostic Results : Imaging Test Ordered: OB US Impression Impression: Positive for 6 week, by crown-rump length, single live intrauterine Equivocal small subchorionic hemorrhage Trace free cul-de-sac fluid, likely physiologic Possible small uterine fibroids Cervical nabothian cysts Negative for adnexal mass Last Vital Signs Date Time Temp Pulse Resp B/P (MAP) Pulse Ox O2 Delivery O2 Flow Rate FiO2 10/31/17 09:55 98.2 82 18 138/81 98 Room Air 98.2 Disposition: HOME, SELF-CARE Condition: Improved Referrals: NON PHYSICIAN (PCP) Patient Instructions: Nausea and Vomiting, Adult ColiVicky wdyer DO Oct 31, 2017 12:46
[2017-10-31 13:36] VITALS: BP 136/80
== END 2017-10-31 13:36 | disposition home or self-care (01) ==
LOC: EMR 10:26
DX: T47.1X1A Poisoning by other antacids and anti-gastric-secretion drugs, accidental (unintentional), initial encounter (principal); R11.2 Nausea with vomiting, unspecified; Y92.89 Other specified places as the place of occurrence of the external cause; O16.1 Unspecified maternal hypertension, first trimester; O99.281 Endocrine, nutritional and metabolic diseases complicating pregnancy, first trimester; O99.89 Other specified diseases and conditions complicating pregnancy, childbirth and the puerperium; R73.03 Prediabetes; E03.9 Hypothyroidism, unspecified; N88.8 Other specified noninflammatory disorders of cervix uteri; Z3A.01 Less than 8 weeks gestation of pregnancy; Z88.1 Allergy status to other antibiotic agents
CPT/HCPCS: 36415; 76801; 80053; 81003; 84702; 85025; 86900; 86901; 99284

== ENCOUNTER 2018-04-19 01:56 | Emergency (ER) | payer MEDICAID ==
[~2018-04-19] VITALS: Ht 162.6 cm; Wt 78.0 kg
[~2018-04-19 01:56] MED LIST changes: +NKM
--- NOTE | 2018-04-19 02:28 | Emergency Room Report ---
History of Present Illness General Chief Complaint: Complications Source: Patient Present Illness HPI Patient presents with lower back pain. She is but does not know how far along she is. She had spotting in February. She feels movement and thinks she's farther along than just from February. He feels that there might be some movement in her lower abdomen. No change in her bowel habits. No vaginal discharge, dysuria. Back pain is somewhat positional. She has not taken any medication for this. She rates the pain at 9/10 and aching. There is no lower extremity weakness. She denies any edema or calf pain. There is no incontinence. There is no lower extremity weakness. He is not taking blood thinners. History of hypothyroidism, prediabetes and hypertension. Allergies: Coded Allergies: AMOXICILLIN (Verified Allergy, Unknown, 04/19/18) Uncoded Allergies: CILLINS (Allergy, Unknown, 04/19/18) Patient History Past Medical History: see triage record Social History: Denies: smoking, alcohol use, drug use Social History Narrative 12 yo at home Last Menstrual Period: 02/19/2017 Now: Yes Reviewed Nursing Documentation: PMH: Agreed; PSxH: Agreed Nursing Documentation-PMH Past Medical History: No History, Except For Hx Hypertension: Yes Hx Diabetes: Yes - pre-diabetic Review of Systems All Other Systems: negative except mentioned in HPI Physical Exam Vital Signs Date Time Temp Pulse Resp B/P (MAP) Pulse Ox O2 Delivery O2 Flow Rate FiO2 04/19/18 02:07 98.1 73 16 120/73 98 Room Air Sp02 EP Interpretation: reviewed, normal General Appearance: well appearing, no apparent distress, GCS 15 Head: normocephalic, atraumatic Eyes: bilateral eye normal inspection, bilateral eye PERRL ENT: moist mucus membranes Neck: supple Respiratory: lungs clear, normal breath sounds Cardiovascular #1: regular rate, rhythm, no edema Cardiovascular #2: 2+ radial (R) Gastrointestinal: normal inspection, normal bowel sounds, non tender, no mass, non-distended Genitourinary: no CVA tenderness, deferred - For ultrasound Musculoskeletal: gait/station normal, normal range of motion, no calf tenderness, tender - Lumbar area out bony tenderness. Straight leg raise negative bilaterally Neurologic: alert, oriented x3, motor strength/tone normal, SLR negative, sensory intact Psychiatric: mood/affect normal Skin: normal inspection, warm/dry, other - [place] right wrist Medical Decision Making Diagnostic Impression: Primary Impression: Back pain Qualified Codes: M54.5 - Low back pain Additional Impressions: 5 weeks gestation of Fibroids ER Course Patient is and presents with lumbar pain. She is uncertain how far along she is. Differential includes ectopic, urinary tract infection, pyelonephritis, lumbar strain amongst others. Evaluation will be with labs including quantitative hCG and ultrasound. Patient will receive Tylenol. CBC normal. Quantitative hCG 13 566. Ultrasound with 5-week 3-day yolk sac. Fibroids. Patient improved with treatment. Discussed lab results and ultrasound. She is also advised to follow-up and find an VISUAL SUPERVISOR. Patient stable for outpatient observation and treatment. Laboratory Tests Test 04/19/18 03:40 04/19/18 05:00 White Blood Count 6.9 K/UL (4.8-10.8) Red Blood Count 4.59 M/UL (4.20-5.40) Hemoglobin 12.6 G/DL (12.0-16.0) Hematocrit 39.0 % (37.0-47.0) Mean Corpuscular Volume 85 FL (80-99) Mean Corpuscular Hemoglobin 27.5 PG (27.0-31.0) Mean Corpuscular Hemoglobin Concent 32.4 G/DL (32.0-36.0) Red Cell Distribution Width 12.9 % (11.6-14.8) Platelet Count 249 K/UL (150-450) Mean Platelet Volume 7.3 FL (6.5-10.1) Neutrophils (%) (Auto) 53.6 % (45.0-75.0) Lymphocytes (%) (Auto) 36.8 % (20.0-45.0) Monocytes (%) (Auto) 7.4 % (1.0-10.0) Eosinophils (%) (Auto) 1.0 % (0.0-3.0) Basophils (%) (Auto) 1.2 % (0.0-2.0) Sodium Level 134 MMOL/L (136-145) L Potassium Level 3.9 MMOL/L (3.5-5.1) Chloride Level 102 MMOL/L (98-107) Carbon Dioxide Level 27 MMOL/L (21-32) Anion Gap 5 mmol/L (5-15) Blood Urea Nitrogen 12 mg/dL (7-18) Creatinine 0.7 MG/DL (0.55-1.30) Estimate Glomerular Filtration Rate > 60 mL/min (>60) Glucose Level 90 MG/DL (74-106) Calcium Level 9.1 MG/DL (8.5-10.1) Total Bilirubin 0.3 MG/DL (0.2-1.0) Aspartate Amino Transferase (AST) 19 U/L (15-37) Alanine Aminotransferase (ALT) 38 U/L (12-78) Alkaline Phosphatase 64 U/L (46-116) Total Protein 7.7 G/DL (6.4-8.2) Albumin 3.7 G/DL (3.4-5.0) Globulin 4.0 g/dL Albumin/Globulin Ratio 0.9 (1.0-2.7) L Lipase 144 U/L (73-393) Human Chorionic Gonadotropin, Quant 54265 mIU/mL (1-6) H Prothrombin Time 11.0 SEC (9.30-11.50) Prothrombin Time INR 1.0 (0.9-1.1) PTT 28 SEC (23-33) Urine Color Pale yellow Urine Appearance Clear Urine pH 6 (4.5-8.0) Urine Specific [place] 1.010 (1.005-1.035) Urine Protein Negative (NEGATIVE) Urine Glucose (UA) Negative (NEGATIVE) Urine Ketones 1+ (NEGATIVE) H Urine Blood Negative (NEGATIVE) Urine Nitrite Negative (NEGATIVE) Urine Bilirubin Negative (NEGATIVE) Urine Urobilinogen Normal MG/DL (0.0-1.0) Urine Leukocyte Esterase Negative (NEGATIVE) CT/MRI/US Diagnostic Results CT/MRI/US Diagnostic Results : Imaging Test Ordered: pelvic u/s Impression 5 week 3 day yolk sac. Fibroids Last Vital Signs Date Time Temp Pulse Resp B/P (MAP) Pulse Ox O2 Delivery O2 Flow Rate FiO2 04/19/18 05:59 98.1 67 18 126/84 98 Room Air Status: improved Disposition: HOME, SELF-CARE Condition: Improved Shabbir Hernandez MD Apr 19, 2018 02:28
--- NOTE | 2018-04-19 02:30 | NUR ---
ED Nurse Note: Pt walked in c/o lower back pain x 2days, pt states she is but does not know how far she is. pt states she confirmed at the doctor but didn't follow up with clinical dental technician and didn't get ultrasound done. pt states her last menstrual cycle was 3 months ago. pt denies any recent injury or trauma of back. pt vss, ambulatory w/ steady gait, no active bleeding, resp even and unlabored on RA -n/v/d at this time, will cont monitor.
--- NOTE | 2018-04-19 03:00 | NUR ---
HAnd OFF endorsed care to Maycol RN and report given.
--- NOTE | 2018-04-19 03:26 | NUR ---
ED Nurse Note: ENDORSED MED AND BLOOD DRAW TO MARCELA ELIZONDO.
--- NOTE | 2018-04-19 03:46 | NUR ---
ED Nurse Note: pt off to ultrasound
[2018-04-19 04:11] LABS: BASOPHILS % (AUTO) 1.2 % (0.0-2.0); HEMOGLOBIN 12.6 G/DL (12.0-16.0); LYMPHOCYTES % (AUTO) 36.8 % (20.0-45.0); MEAN CORPUSCULAR VOLUME 85 FL (80-99); MONOCYTES % (AUTO) 7.4 % (1.0-10.0); NEUTROPHILS % (AUTO) 53.6 % (45.0-75.0); PLATELET COUNT 249 K/UL (150-450); RED BLOOD COUNT 4.59 M/UL (4.20-5.40); RED CELL DISTRIBUTION WIDTH 12.9 % (11.6-14.8); WHITE BLOOD COUNT 6.9 K/UL (4.8-10.8)
[2018-04-19 04:23] LABS: ANION GAP 5 mmol/L (5-15); BLOOD UREA NITROGEN 12 mg/dL (7-18); CALCIUM 9.1 MG/DL (8.5-10.1); CARBON DIOXIDE 27 MMOL/L (21-32); CHLORIDE 102 MMOL/L (98-107); CREATININE 0.7 MG/DL (0.55-1.30); POTASSIUM 3.9 MMOL/L (3.5-5.1); SODIUM 134 MMOL/L (136-145)
[2018-04-19 04:29] LABS: ALANINE AMINOTRANSFERASE 38 U/L (12-78); ALBUMIN 3.7 G/DL (3.4-5.0); ALBUMIN/GLOBULIN RATIO 0.9 (1.0-2.7); ALKALINE PHOSPHATASE 64 U/L (46-116); ASPARTATE AMINO TRANSFERASE 19 U/L (15-37); BILIRUBIN,TOTAL 0.3 MG/DL (0.2-1.0)
--- NOTE | 2018-04-19 05:01 | Diagnostic Imaging Report ---
EXAM: US Pelvis Complete, Transabdominal. US Pelvis, Transvaginal. CLINICAL HISTORY: ABD PAIN TECHNIQUE: Real-time transabdominal and transvaginal pelvic ultrasound (complete) with image documentation. Transvaginal imaging was used for better evaluation of the endometrium and adnexa. COMPARISON: No relevant prior studies available. FINDINGS: Endometrium: There is an intrauterine gestational sac, measuring up to 18 mm in mean diameter, corresponding to gestational age of 5 weeks and 3 days. A small yolk sac is identified, measuring approximately 3 mm in diameter. No definite pole is seen. Uterus/cervix: Well-circumscribed hypo-echoic lesions within the myometrium likely represent small intramural fibroids. Possible complex nabothian cysts seen within the cervix, the largest measuring up to 20 mm in diameter.. Right ovary: Probable 2.4 x 1.5 x 1.7 cm corpus luteum cyst seen within the right ovary. Left ovary: Unremarkable. No mass. Normal blood flow. Free fluid: No free fluid. IMPRESSION: Early intrauterine gestational sac containing yolk sac. No pole identified at this stage. Consider repeat pelvic sonogram within 10-12 days to confirm viability. Probable small intramural fibroids and complex nabothian cysts. Probable corpus luteum cyst in right ovary.
[2018-04-19 05:08] LABS: APPEARANCE,URINE CLEAR; BILIRUBIN, URINE NEGATIVE (NEGATIVE); COLOR,URINE PALE YELLOW; GLUCOSE, URINE (UA) NEGATIVE (NEGATIVE); KETONES,URINE 1+ (NEGATIVE); LEUKOCYTE ESTERASE ,URINE NEGATIVE (NEGATIVE); NITRITE,URINE NEGATIVE (NEGATIVE); PH,URINE 6 (4.5-8.0); PROTEIN,URINE NEGATIVE (NEGATIVE); UROBILINOGEN,URINE NORMAL MG/DL (0.0-1.0)
[2018-04-19 05:59] VITALS: BP 126/84
--- NOTE | 2018-04-19 06:00 | NUR ---
ER DISCHARGE NOTE: Patient is cleared to be discharged per ERMD, pt is aox4, on room air, with stable vital signs. pt was given dc and prescription instructions, pt was able to verbalize understanding, pt id band and iv site removed without complications. pt is able to ambulate with steady gait. pt took all belongings.
== END 2018-04-19 06:01 | disposition home or self-care (01) ==
LOC: EMR 04:06
DX: O26.891 Other specified pregnancy related conditions, first trimester (principal); Z3A.01 Less than 8 weeks gestation of pregnancy; M54.5 Low back pain; O34.11 Maternal care for benign tumor of corpus uteri, first trimester; D25.9 Leiomyoma of uterus, unspecified; Z88.0 Allergy status to penicillin
CPT/HCPCS: 36415; 76830; 76856; 80053; 81003; 83690; 84702; 85025; 85610; 85730; 86850; 86900; 86901; 96360; 99284

== ENCOUNTER 2018-07-10 20:14 | Emergency (ER) | payer OTHER, MEDICAID ==
[~2018-07-10] VITALS: Ht 162.6 cm; Wt 80.3 kg
[2018-07-10 20:26] VITALS: BP 125/78
--- NOTE | 2018-07-10 20:40 | Emergency Room Report ---
History of Present Illness General Chief Complaint: Back Pain-No Injury Source: Patient Present Illness HPI This is a 28-year-old pleasant female who is approximately 19 weeks , complaining of low back pain when she was lifting trays at work. Lower back pain. She denies any radiation. She denies any neurological deficit. This happened 3 days ago. Worse on forward bending.. Denies any bowel or urine incontinence. Just complains of right ear pain. She denies any other associated symptoms. No radiation. She denies any decreased hearing. This also started off 4 days ago. Allergies: Coded Allergies: AMOXICILLIN (Verified Allergy, Unknown, 04/19/18) Uncoded Allergies: CILLINS (Allergy, Unknown, 04/19/18) Patient History Past Medical History: none Past Surgical History: none Pertinent Family History: none Last Menstrual Period: 19 weeks Now: Yes : 1 Para: 2 Nursing Documentation-[facility] Past Medical History: No History, Except For Hx Hypertension: Yes Hx Diabetes: Yes - pre-diabetic Review of Systems All Other Systems: negative except mentioned in HPI Physical Exam Vital Signs Date Time Temp Pulse Resp B/P (MAP) Pulse Ox O2 Delivery O2 Flow Rate FiO2 07/10/18 20:17 98.1 82 18 124/77 (93) 98 Room Air General Appearance: well appearing, no apparent distress Head: normocephalic, atraumatic ENT: hearing grossly normal, normal pharynx, normal voice, TMs + canals normal , uvula midline Neck: full range of motion, supple Respiratory: no respiratory distress, speaking full sentences Gastrointestinal: normal bowel sounds, non tender, soft, other - gravid uterus Musculoskeletal: normal inspection, back normal, gait/station normal, normal range of motion, no calf tenderness Neurologic: alert, normal gait Psychiatric: mood/affect normal Skin: no rash Medical Decision Making Diagnostic Impression: Primary Impression: Back pain ER Course Patient was emergently seen and evaluated. Multiple bedside evaluation was done. I did consider spinal abscess, spinal cord compression, cauda equina syndrome. Also consider lumbar fracture and lumbar compression fracture. She is neurologically intact. She has no midline tenderness. X-ray was considered but the risk outweighs the benefit, especially in the fact that she is . She has no abdominal tenderness. She has no vaginal bleeding. I do not suspect labor. I do not suspect rupture of membrane. Regarding her ear pain, I did suspect otitis externa, otitis media, mastoiditis, foreign body. The patient is afebrile. She has no other associated symptoms. She is nondiabetic. She is to follow-up with her primary care physician as an outpatient. Last Vital Signs Date Time Temp Pulse Resp B/P (MAP) Pulse Ox O2 Delivery O2 Flow Rate FiO2 07/10/18 20:26 98.1 83 18 125/78 98 Room Air Status: unchanged Disposition: HOME, SELF-CARE Patient Instructions: Back Pain, Adult ALEN CELIS July 10, 2018 20:40
[2018-07-10 20:42] VITALS: BP 125/78
== END 2018-07-10 20:50 | disposition home or self-care (01) ==
LOC: EMR 20:35
DX: O26.892 Other specified pregnancy related conditions, second trimester (principal); Z3A.19 19 weeks gestation of pregnancy; M54.5 Low back pain; H92.01 Otalgia, right ear; Z88.0 Allergy status to penicillin
CPT/HCPCS: 99282

== ENCOUNTER 2018-08-28 22:58 | Emergency (ER) | payer OTHER, MEDICAID ==
[~2018-08-28] VITALS: Ht 162.6 cm; Wt 82.6 kg
[2018-08-28 23:00] VITALS: BP 127/72
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
[2018-08-28 23:35] VITALS: BP 125/72
--- NOTE | 2018-08-28 23:35 | NUR ---
ER DISCHARGE NOTE: Patient is cleared to be discharged per ERMD, pt is aox4, on room air, with stable vital signs. pt was given dc and prescription instructions, pt was able to verbalize understanding, pt id band removed without complications. pt is able to ambulate with steady gait. pt took all belongings.
== END 2018-08-28 23:35 | disposition home or self-care (01) ==
LOC: EMR 23:25
DX: O26.893 Other specified pregnancy related conditions, third trimester (principal); Z3A.00 Weeks of gestation of pregnancy not specified; R19.7 Diarrhea, unspecified; R42 Dizziness and giddiness; T75.89XA Other specified effects of external causes, initial encounter; X58.XXXA Exposure to other specified factors, initial encounter; Y92.89 Other specified places as the place of occurrence of the external cause; Z88.0 Allergy status to penicillin
CPT/HCPCS: 99281

== ENCOUNTER 2019-06-20 00:48 | Emergency (ER) | payer MEDICAID, OTHER ==
[~2019-06-20] VITALS: Ht 162.6 cm; Wt 77.1 kg
[2019-06-20 01:05] VITALS: BP 142/77
--- NOTE | 2019-06-20 01:05 | NUR ---
ED Nurse Note: Pt walked into ED from home for c/o bug bite with increased swelling to R forearm area x 3 days. Pt also notes other bug bite on R foot. No open wound or drainage noted. Pt is aaox4, no cardiac or respiratory distress.
[2019-06-20] MEDS ORDERED: Bactrim-DS 1 tab ORAL ONE (01:15)
[2019-06-20] MEDS ORDERED: Bactrim-DS 1 tab ONE (01:21)
[2019-06-20] MEDS ORDERED: BACTRIM DS TAB1 EAC1 ORAL (01:22)
[2019-06-20] MEDS ORDERED: MUPIROCIN22 GM TOPIC (01:22)
--- NOTE | 2019-06-20 01:22 | Emergency Room Report ---
History of Present Illness General Chief Complaint: Skin Rash/Abscess Source: Patient Present Illness HPI This is a 29-year-old female with no significant past medical history. She presents with chief complaint of "spider bite" to her right forearm. Onset for last 3 days or so. She says she felt a sting in that area and then for last few days has been more swollen. She is tried home remedy without any relief. No drainage. Itching. She also has a small "bite" on her buttock in foot. Never had this problem before. No nausea no vomiting. No fever chills. Denies any insect or spider. They made it better. Nothing made it worse. Allergies: Coded Allergies: AMOXICILLIN (Verified Allergy, Unknown, 04/19/18) Uncoded Allergies: CILLINS (Allergy, Unknown, 04/19/18) COVID-19 Screening Contact w/high risk pt: No Recent Travel to affected area: No Experienced COVID-19 symptoms?: No Patient History Past Medical History: see triage record, old chart reviewed Past Surgical History: none Pertinent Family History: none Social History: Denies: smoking Last Menstrual Period: 06-02-2019 Now: No Immunizations: other Reviewed Nursing Documentation: PMH: Agreed; PSxH: Agreed Nursing Documentation-PMH Hx Hypertension: Yes Hx Diabetes: Yes - pre-diabetic Review of Systems Eye: Denies: eye pain, blurred vision ENT: Denies: ear pain, nose congestion, throat swelling Respiratory: Denies: cough, shortness of breath Cardiovascular: Denies: chest pain, palpitations Gastrointestinal: Denies: abdominal pain, diarrhea, nausea, vomiting Musculoskeletal: Denies: back pain, joint pain Skin: Denies: rash Neurological: Denies: headache, numbness Endocrine: Denies: increased thirst, increased urine Hematologic/Lymphatic: Denies: easy bruising All Other Systems: negative except mentioned in HPI Physical Exam Vital Signs Date Time Temp Pulse Resp B/P (MAP) Pulse Ox O2 Delivery O2 Flow Rate FiO2 06/20/19 00:55 98.2 77 16 142/77 (98) 95 Room Air Vitals unremarkable Sp02 EP Interpretation: reviewed, normal General Appearance: well appearing, no apparent distress, alert Head: normocephalic, atraumatic Eyes: bilateral eye PERRL, bilateral eye EOMI ENT: hearing grossly normal, normal pharynx Neck: full range of motion, supple, no meningismus Respiratory: chest non-tender, lungs clear, normal breath sounds Cardiovascular #1: regular rate, rhythm, no murmur Gastrointestinal: normal bowel sounds, non tender, no mass, no organomegaly, no bruit, non-distended Musculoskeletal: back normal, normal range of motion, gait/station normal, swelling - Right forearm: On the distal third of the forearm on the lateral aspect, there is a 3 x 4 cm area of erythema and skin induration. No fluctuant. No crepitus., other - On the dorsum of the right foot: There is a small 2 to 3 mm indurated area. No abscess. Psychiatric: mood/affect normal Medical Decision Making Diagnostic Impression: Primary Impression: Cellulitis of forearm, right ER Course Patient presents with cellulitis of her right forearm. There is no evidence of any abscess. No evidence of any necrotizing fasciitis. Dose of antibiotics given here. Will discharge home. Last Vital Signs Date Time Temp Pulse Resp B/P (MAP) Pulse Ox O2 Delivery O2 Flow Rate FiO2 06/20/19 01:05 98.2 77 16 142/77 95 Room Air Status: improved Disposition: HOME, SELF-CARE Condition: Stable Scripts Mupirocin* (MUPIROCIN*) 22 Gm Oint...g. 1 APPLIC TOPIC THREE TIMES A DAY, #22 GM Prov: Eugene Wilcox MD 06/20/19 Trimethoprim/Sulfamethoxazole 160/800* (BACTRIM DS TABLET*) 1 Each Tablet 1 TAB ORAL Q12H, #14 TAB 0 Refills Prov: Eugene Wilcox MD 06/20/19 Additional Instructions: Keep wound clean. Clean first with hydroperoxide and apply antibiotic ointment. Follow-up with your doctor in 7 days. Return if worse. Eugene Wilcox MD June 20, 2019 01:22
--- NOTE | 2019-06-20 01:23 | NUR ---
ED Nurse Note: Pt dropped bactrim medication on the floor, medication tablet is contaminated. New bactrim tablet pulled from pyxis via override.
[2019-06-20 01:30] VITALS: BP 136/80
--- NOTE | 2019-06-20 01:30 | NUR ---
ER DISCHARGE NOTE: Patient is cleared to be discharged per ERMD, pt is aox4, on room air, with stable vital signs. pt was given dc and prescription instructions, pt was able to verbalize understanding, pt id band removed. pt is able to ambulate with steady gait. pt took all belongings.
== END 2019-06-20 01:30 | disposition home or self-care (01) ==
LOC: EMR 01:05
DX: L03.113 Cellulitis of right upper limb (principal); I10 Essential (primary) hypertension; R73.03 Prediabetes; R22.41 Localized swelling, mass and lump, right lower limb; Z88.0 Allergy status to penicillin
CPT/HCPCS: 99282

== ENCOUNTER 2019-09-16 23:07 | Emergency (ER) | payer MEDICAID ==
[~2019-09-16] VITALS: Ht 162.6 cm; Wt 81.6 kg
[~2019-09-16 23:07] MED LIST changes: +BACTRIM DS TAB1 EAC1 ORAL; +MUPIROCIN22 GM TOPIC
[2019-09-16 23:25] VITALS: BP 133/83
--- NOTE | 2019-09-16 23:25 | NUR ---
ED Nurse Note: Pt walked into ED from home for c/o possible insect bites to L arm. Pt has redness and mild swelling to L arm. [place] bite l[place]. Pt is otherwise in no acute distress, breathing is normal and unlabored. Pt is aaox4, ambulatory with steady gait.
[2019-09-16] MEDS ORDERED: CLINDAMYCIN HC300 MG ORAL (23:28)
[2019-09-16] MEDS ORDERED: MUPIROCIN22 GM TOPIC (23:28)
--- NOTE | 2019-09-16 23:29 | Emergency Room Report ---
History of Present Illness General Chief Complaint: Skin Rash/Abscess Source: Patient Present Illness HPI This is a 29-year-old female who presents with chief plaint of possible bite to her left elbow. Onset for last 2 to 3 days. Getting more swollen and itchy. Now radiating to her armpit and chest. Denies anything biting her. Denies any fever chills. No nausea no vomiting. Been applying antibiotic ointment is not helping. No other complaint. 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 Patient History Past Medical History: see triage record, old chart reviewed Past Surgical History: none Pertinent Family History: none Social History: Denies: smoking Now: No : 4 Para: 2 Immunizations: other Reviewed Nursing Documentation: PMH: Agreed; PSxH: Agreed Nursing Documentation-PMH Past Medical History: No Stated History Hx Hypertension: Yes Hx Diabetes: Yes - pre-diabetic Review of Systems Eye: Denies: eye pain, blurred vision ENT: Denies: ear pain, nose congestion, throat swelling Respiratory: Denies: cough, shortness of breath Cardiovascular: Denies: chest pain, palpitations Gastrointestinal: Denies: abdominal pain, diarrhea, nausea, vomiting Musculoskeletal: Denies: back pain, joint pain Skin: Reports: rash Neurological: Denies: headache, numbness Endocrine: Denies: increased thirst, increased urine Hematologic/Lymphatic: Denies: easy bruising All Other Systems: negative except mentioned in HPI Physical Exam Vital Signs Date Time Temp Pulse Resp B/P (MAP) Pulse Ox O2 Delivery O2 Flow Rate FiO2 09/16/19 23:11 98.6 87 20 133/83 (100) 99 Room Air Vitals unremarkable Sp02 EP Interpretation: reviewed, normal General Appearance: well appearing, no apparent distress, alert Head: normocephalic, atraumatic Eyes: bilateral eye PERRL, bilateral eye EOMI ENT: hearing grossly normal, normal pharynx Neck: full range of motion, supple, no meningismus Respiratory: chest non-tender, lungs clear, normal breath sounds Cardiovascular #1: regular rate, rhythm, no murmur Gastrointestinal: normal bowel sounds, non tender, no mass, no organomegaly, no bruit, non-distended Musculoskeletal: back normal, normal range of motion, gait/station normal, other - Left elbow: On the posterior aspect of the elbow over the distal humerus there is a indurated and erythematous area of 3 to 4 cm. Warm to the touch. Full range of motion the elbow. No fluctuant. Psychiatric: mood/affect normal Medical Decision Making Diagnostic Impression: Primary Impression: Cellulitis of left upper extremity ER Course Patient with cellulitis of the operative extremity. No evidence of any abscess or septic joint. Most likely MRSA. No evidence of necrotizing fasciitis. Will discharge home. Dose of antibiotics given here. Last Vital Signs Date Time Temp Pulse Resp B/P (MAP) Pulse Ox O2 Delivery O2 Flow Rate FiO2 09/16/19 23:11 98.6 87 20 133/83 (100) 99 Room Air Status: improved Disposition: HOME, SELF-CARE Condition: Stable Scripts Clindamycin Hcl (CLINDAMYCIN HCL) 300 Mg Capsule 300 MG ORAL THREE TIMES A DAY, #21 CAP Prov: Eugene Wilcox MD 09/16/19 Mupirocin* (MUPIROCIN*) 22 Gm Oint...g. 1 APPLIC TOPIC THREE TIMES A DAY, #22 GM Prov: Eugene Wilcox MD 09/16/19 Referrals: [facility] (PCP) Additional Instructions: Keep wound clean. Clean first with hydroperoxide and apply antibiotic ointment. Follow-up with your doctor in 2 to 5 days for recheck if not better. Return if worse. Eugene Wilcox MD Sep 16, 2019 23:29
[2019-09-16 23:30] VITALS: BP 128/88
[2019-09-16] MEDS ORDERED: Clindamycin 150mg cap ORAL ONE (23:30)
== END 2019-09-16 23:30 | disposition home or self-care (01) ==
LOC: EMR 23:20
DX: L03.114 Cellulitis of left upper limb (principal); I10 Essential (primary) hypertension; Z88.0 Allergy status to penicillin; R73.03 Prediabetes
CPT/HCPCS: 99282

== ENCOUNTER 2020-04-10 23:31 | Emergency (ER) | payer MEDICAID ==
[~2020-04-10] VITALS: Ht 162.6 cm; Wt 81.6 kg
[~2020-04-10 23:31] MED LIST changes: +CLINDAMYCIN HC300 MG ORAL
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
--- NOTE | 2020-04-11 00:07 | NUR ---
ED Nurse Note: urine sent to lab
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
--- NOTE | 2020-04-11 00:52 | Diagnostic Imaging Report ---
EXAM: CT Head Without Intravenous Contrast CLINICAL HISTORY: TRAUMA TECHNIQUE: Axial computed tomography images of the head/brain without intravenous contrast. CTDI is 53.4 mGy and DLP is 1125.7 mGy-cm. One or more of the following dose reduction techniques were used: automated exposure control, adjustment of the mA and/or kV according to patient size, use of iterative reconstruction technique. COMPARISON: No relevant prior studies available. FINDINGS: Brain: Unremarkable. No hemorrhage. No significant white matter disease. No edema. Ventricles: Unremarkable. No ventriculomegaly. Bones/joints: Unremarkable. No acute fracture. Soft tissues: Unremarkable. Sinuses: Unremarkable as visualized. No acute sinusitis. Mastoid air cells: Unremarkable as visualized. No mastoid effusion. IMPRESSION: Unremarkable head/brain CT.
--- NOTE | 2020-04-11 00:57 | Diagnostic Imaging Report ---
EXAM: XR Chest, 1 View CLINICAL HISTORY: PAIN TECHNIQUE: Frontal view of the chest. COMPARISON: No relevant prior studies available. FINDINGS: Lungs: Unremarkable. No consolidation. Pleural space: Unremarkable. No pneumothorax. Heart: Unremarkable. No cardiomegaly. Mediastinum: Unremarkable. Bones/joints: No acute abnormality IMPRESSION: 1. No acute cardiopulmonary disease. 2. If there is continued concern consider frontal and lateral chest radiographs or CT.
[2020-04-11] MEDS ORDERED: TESSALON PERLE100 MG ORAL (00:59)
[2020-04-11] MEDS ORDERED: AFRIN NASAL SPR30 ML NASAL (01:00)
--- NOTE | 2020-04-11 01:10 | Diagnostic Imaging Report ---
EXAM: CT Maxillofacial Without Intravenous Contrast CLINICAL HISTORY: PAIN TECHNIQUE: Axial computed tomography images of the face without intravenous contrast. CTDI is 15.3 mGy and DLP is 370.5 mGy-cm. One or more of the following dose reduction techniques were used: automated exposure control, adjustment of the mA and/or kV according to patient size, use of iterative reconstruction technique. Coronal and sagittal reformatted images were created and reviewed. Axial reformatted images were created and reviewed. COMPARISON: No relevant prior studies available. FINDINGS: Bones/joints: No acute fracture. Soft tissues: Unremarkable. Orbits: Unremarkable. Sinuses: Unremarkable. No air-fluid levels. Brain: For intracranial findings, please see dedicated CT head report from the same date. IMPRESSION: 1. For intracranial findings, please see dedicated CT head report from the same date. 2. No acute abnormality definitively identified to account for patient presentation. 3. Unremarkable study.
--- NOTE | 2020-04-11 01:16 | NUR ---
ER DISCHARGE NOTE: Patient is cleared to be discharged per ERMD, pt is aox4, on room air, with stable vital signs. pt was given dc and prescription instructions, pt was able to verbalize understanding, pt id band removed . pt is able to ambulate with steady gait. pt took all belongings.
[2020-04-11 01:34] VITALS: BP 114/80
== END 2020-04-11 01:15 | disposition home or self-care (01) ==
LOC: EMR 23:54
DX: S09.90XA Unspecified injury of head, initial encounter (principal); Y04.2XXA Assault by strike against or bumped into by another person, initial encounter; Y92.9 Unspecified place or not applicable; I10 Essential (primary) hypertension; R73.03 Prediabetes
CPT/HCPCS: 70450; 70486; 71045; 81025; Z7502; 99284